=== PATIENT | female | born 1990 ===

== ENCOUNTER 2017-08-30 18:21 | Emergency (ER) | payer SELFPAY ==
--- NOTE | 2017-08-30 20:14 | NUR ---
PATIENT WAS CALLED SEVERAL TIMES. PATIENT LEFT WITHOUT BEING TRIAGE OR SEEN BY ER MD
== END 2017-08-30 20:15 | disposition left against medical advice (07) ==
LOC: ER 18:23
DX: Z53.21 Procedure and treatment not carried out due to patient leaving prior to being seen by health care provider (principal)